=== PATIENT | female | born 1980 | race Asian ===

== ENCOUNTER 2021-05-18 06:11 | Day surgery (SDC) | payer OTHER ==
[~2021-05-18] VITALS: Ht 152.4 cm; Wt 59.0 kg
[2021-05-18] MEDS ORDERED: SODIUM CHLORIDE 0.9% 1,000 ML IV SCH (06:30)
[2021-05-18 07:24] LABS: BASOPHILS % (AUTO) 1 % (0-1); EOSINOPHILS % (AUTO) 0 % (1-7); LYMPHOCYTES % (AUTO) 13 % (22-44); MEAN CORPUSCULAR HEMOGLOBIN 32.7 pg (27.0-34.8); MEAN CORPUSCULAR HGB CONC 35.2 g/dL (32.4-35.8); MEAN PLATELET VOLUME 7.5 fL (7.4-10.4); MONOCYTES % (AUTO) 11 % (2-9); NEUTROPHILS % (AUTO) 76 % (42-75); PLATELET COUNT 273 x10^3/uL (130-400); RED BLOOD COUNT 4.43 x10^6/uL (3.82-5.3); RED CELL DISTRIBUTION WIDTH 13.4 % (9.6-15.2)
[2021-05-18 07:29] LABS: ANION GAP 5 mmol/L (5-15); CALCIUM 8.8 mg/dL (8.5-10.1); CHLORIDE 107 mmol/L (98-107)
[2021-05-18 07:35] LABS: ALANINE AMINOTRANSFERASE 26 U/L (12-78); ALKALINE PHOSPHATASE 43 U/L (45-117); CREATININE 0.68 mg/dL (0.55-1.02); TOTAL PROTEIN 7.9 g/dL (6.4-8.2)
[2021-05-18] MEDS ORDERED: FENTANYL PF 100 MCG/2ML ONE (07:49)
[2021-05-18] MEDS ORDERED: MIDAZOLAM 1 MG/ML, 5ML ONE (07:49)
[2021-05-18] MEDS ORDERED: ISOPROTERENOL 0.2MG/ML, 5ML ONE (07:50)
[2021-05-18] MEDS ORDERED: LIDOCAINE 2%, 20ML ONE (07:50)
[2021-05-18] MEDS ORDERED: ADENOSINE 6 MG/2 ML ONE (07:50)
[2021-05-18] MEDS ORDERED: ACETAMINOPHEN 325 MG TABLET ONE (12:28)
[2021-05-18] MEDS ORDERED: ACETAMINOPHEN 325 MG TABLET PO PRN (12:30)
[2021-05-18] MEDS ORDERED: LEVO50TA5 PO (13:23)
[2021-05-18] MEDS ORDERED: MULT1TAB58 PO (13:24)
[2021-05-18] MEDS ORDERED: ACYC-40 PO (13:24)
== END 2021-05-18 15:30 | disposition home or self-care (01) ==
LOC: CACL 06:11 → EDBD 08:00 → CACL 15:30
PROVIDERS: ATTEND Internal Medicine Cardiovascular Disease
DX: I47.1 Supraventricular tachycardia (principal); C81.90 Hodgkin lymphoma, unspecified, unspecified site; E03.9 Hypothyroidism, unspecified; G47.33 Obstructive sleep apnea (adult) (pediatric); Z79.890 Hormone replacement therapy; Z79.899 Other long term (current) drug therapy
CPT/HCPCS: 36415; 71046; 80053; 84703; 85025; 93005; 93613; 93621; 93623; 93653; 99156; 99157; C1730; C1769; C1894; C2630; J2250; J3010; J0153